=== PATIENT | female | born 1990 | race Caucasian/White ===

== ENCOUNTER 2022-11-16 06:55 | Emergency (ER) | payer SELFPAY ==
[2022-11-16 06:59] VITALS: BP 139/87; PULSE 67; RESP 20; TEMP 36.6; O2SAT 99; BMI 35.5
--- NOTE | 2022-11-16 07:42 | ED.GENADUL1 ---
HPI - General Adult General Chief complaint: Extremity Injury, Upper Stated complaint: R ARM NUMBNESS Time Seen by Provider: 11/16/22 07:26 Source: patient Source information: PATIENT Mode of arrival: walk-in Limitations: no limitations History of Present Illness HPI narrative: Patient is a 32-year-old female who is presenting to the Emergency Room with chief complaint of right forearm, wrist, hand throbbing, pain, numbness and tingling. This starts from her mid forearm and extends down all 5 fingers. Patient is right-hand dominant. Patient's been having more anxiety at work last week, also has been working longer shifts anywhere from 14-16 if not more hours a day. Patient's is at bedside. Patient has been taking Motrin with some relief. She does not use any ice or heat. Patient is concerned about a stroke. She has no headache. No motor or sensory deficits, most her pain is throbbing, her forearm and hand feels tight secondary to inflammation and some mild swelling. She has no infection. No signs of gallop. She has not had anything like this before. Patient does do repetitious work in the factory, she's been doing more working more hours last week that could've led to her symptoms. Patient's also more anxiety stress, she's been taking her medication and also taking more Atarax/hydroxyzine to help with her anxiety last week as well. No vision or hearing changes. Patient has no slurred speech or Facial droop. No deficits to her arms or legs, no acute complaints. Noted chest pain, shortness of breath. Symptoms have been intermittent for the last 3 days. Patient did not go to work today. Related Data Allergies Allergy/AdvReac Type Severity Reaction Status Date / Time Penicillins Allergy Intermediate Verified 11/16/22 07:03 Review of Systems ROS Narrative All systems are negative except as noted/marked. All systems reviewed and otherwise negative. [facility] Social History Smoking status: Never smoker Exam Narrative Exam Narrative: Nurses note and vital signs reviewed and patient is not hypoxic. General: The patient appears well and in no apparent distress. Patient is resting comfortably on cart. Patient is not toxic, lethargic, or listless Skin: Warm, dry, no pallor noted. There is no rash noted. No petechiae, purpura. Head: Normocephalic, atraumatic Eye: Normal conjunctiva, no drainage, EOMI. PERRL Ears, Nose, Mouth, and Throat: oral mucosa is moist. Nares patent. Mouth without vesicles. Cardiovascular: Regular Rate and Rhythm, no murmur, gallop, rub Respiratory: Patient is in no distress, no accessory muscle use, lungs are clear to auscultation, no wheezing, rales or rhonchi Back: non-tender, no CVA tenderness bilaterally to percussion. No CT LS midline pain GI: soft, no tenderness to palpation, no masses appreciated. No rebound, guarding, or rigidity noted. No flank pain bilateral, No distention Musculoskeletal: Patient has full range of motion of all of the extremities, no motor, sensory, or focal neurological deficits Neurological: A&O x3, normal speech, NIH 0. Patient has no motor or sensory deficits to the right arm, wrist, hand. Patient has good opposition with her thumb to her index finger, and her thumb to her pinky finger. Patient is able to make a fist, she is also able to open up her hand, but she slow to open up her hand with active range of motion secondary to swelling and throbbing. Patient has full range of motion of her wrist with mild pain. Patient's forearm shows no compartment syndrome, mild swelling and inflammation. Thhere is no redness, no signs of cellulitis or any signs of infection. Patient states all 5 fingers in the palmar and dorsal aspect of the hand are affected equally with swelling, throbbing, intermittent numbness and tingling like her hand is asleep. No weight. Psychiatric: Cooperative Constitutional Vital Signs, click to edit/add: Last Vital Signs Temp 97.8 F 11/16/22 06:59 Pulse 67 11/16/22 06:59 Resp 20 11/16/22 06:59 BP 139/87 11/16/22 06:59 Pulse Ox 99 11/16/22 06:59 O2 Del Method Room Air 11/16/22 06:59 Course Vital Signs Vital signs: Vital Signs Temperature 97.8 F 11/16/22 06:59 Pulse Rate 67 11/16/22 06:59 Respiratory Rate 20 11/16/22 06:59 Blood Pressure 139/87 11/16/22 06:59 Pulse Oximetry 99 11/16/22 06:59 Oxygen Delivery Method Room Air 11/16/22 06:59 Temperature 97.8 F 11/16/22 06:59 Pulse Rate 67 11/16/22 06:59 Respiratory Rate 20 11/16/22 06:59 Blood Pressure 139/87 11/16/22 06:59 Pulse Oximetry 99 11/16/22 06:59 Oxygen Delivery Method Room Air 11/16/22 06:59 Medical Decision Making MDM Narrative Medical decision making narrative: Patient had education done on stroke at bedside with patient and . Patient has no signs of stroke. Education on ice, rice therapy was done. Patient was given a right wrist splint. Patient will use Motrin 800 mg 3 times a day, patient lives in [place], patient would like to follow up with Dr. Cleary or [facility]. Work note and restrictions were given. Patient will only use her wrist splint for the next 3-4 days, then she'll start doing range of motion and strengthening exercises as well. No questions at discharge Discharge Plan Discharge Chief Complaint: Extremity Injury, Upper Clinical Impression: Right forearm pain, Sprain and strain of wrist, Arthralgia of right hand Patient Disposition: Home, Self-Care Condition: Fair Instructions: Sprain (ED), Arthralgia (ED), Wrist Sprain (ED), Arm Pain (ED), Cold Compress or Soak (ED) Additional Instructions: Usually wrist splint for the next 2 or 3 days. Use ice 20 minutes on, 20 minutes off. Use Motrin 800 mg 3 times a day with food or drink. Follow-up with Dr. Royal or Dr. Cleary in [place] for orthopedics surgery as discussed. Stand Alone Forms: Portal Instructions Referrals: BASIL MATAMOROS [Primary Care Provider] - 1 week
[2022-11-16 07:51] VITALS: BP 147/98; PULSE 78; RESP 20; O2SAT 98
== END 2022-11-16 07:55 | disposition home or self-care (01) ==
PROVIDERS: Emergency Provider Emergency Medicine; PCP Nurse Practitioner Family
DX: S63.501A Unspecified sprain of right wrist, initial encounter (principal); S66.911A Strain of unspecified muscle, fascia and tendon at wrist and hand level, right hand, initial encounter; M79.631 Pain in right forearm; M25.541 Pain in joints of right hand; X50.3XXA Overexertion from repetitive movements, initial encounter
CPT/HCPCS: 99283

== ENCOUNTER 2024-04-10 09:15 | Outpatient (OUT) | payer BC, SELFPAY ==
--- NOTE | 2024-04-10 09:55 | XR_ITS ---
The [address] [address] Patient Name: MOSES EMMANUEL MRN: [id number] date: 1990 Sex: F Assigned Patient Location: LAB Current Patient Location: LAB Accession/Order Number: [id number] Exam Date: 04/10/2024 10:10 Report Date: 04/10/2024 23:41 At the request of: BASIL MATAMOROS Procedure: XR lumbar spine 6V w bending EXAMINATION: XR lumbar spine 6V w bending HISTORY: Degeneration Of Lumbar Region COMPARISON: No relevant comparison available. FINDINGS: BONES: No significant spondylosis, scoliosis, fracture, or visible bony lesion. DISC SPACES: Moderate narrowing L5-S1 with small posterior disc osteophyte complex. PARASPINOUS: Negative. No paraspinous abnormality is seen. OTHER: Negative. XR/XR lumbar spine 6V w bending IMPRESSION: 1. L5-S1 moderate disc space narrowing with posterior endplate osteophytes likely narrowing the neural foramen. Consider MRI for further evaluation. Electronically authenticated by: DARIA TRAN Date: 04/10/2024 23:41
[2024-04-10 10:04] LABS: Basophils Percent Auto 0.6 % (0.2-2.0); Eosinophils Absolute Auto 0.1 10^3/uL (0.0-0.7); Eosinophils Percent Auto 1.8 % (0.9-7.0); Hematocrit 40.8 % (36.0-48.0); Hemoglobin 13.3 g/dL (12.0-16.0); Immature Granulocytes Abs Auto 0.04 10^3/uL (0.00-0.03); Immature Granulocytes Pct Auto 0.6 % (0.0-0.5); Lymphocytes Absolute Auto 2.5 10^3/uL (1.2-3.8); Lymphocytes Percent Auto 35.3 % (20.5-60.0); Mean Corpuscular HGB Conc 32.6 g/dL (29.9-35.2); Mean Corpuscular Hemoglobin 29.1 pg (26.7-34.0); Mean Corpuscular Volume 89.3 fL (81.0-99.0); Mean Platelet Volume 10.5 fL (9.5-13.5); Monocytes Absolute Auto 0.7 10^3/uL (0.3-0.8); Monocytes Percent Auto 10.1 % (1.7-12.0); Neutrophils Absolute Auto 3.7 10^3/uL (1.4-6.5); Neutrophils Percent Auto 51.6 % (43.0-75.0); Platelet Count 370 10^3/uL (150-450); Red Blood Count 4.57 10^6/uL (4.20-5.40); Red Cell Distribution Width 12.6 % (11.0-15.0); White Blood Count 7.2 10^3/uL (4.0-11.0)
[2024-04-10 11:17] LABS: Alanine Aminotransferase 23 U/L (14-59); Albumin Globulin Ratio 0.8; Albumin Level 3.4 g/dL (3.4-5.0); Alkaline Phosphatase 89 U/L (46-116); Anion Gap 11.5; Aspartate Amino Transferase 14 U/L (15-37); Bilirubin Total 0.2 mg/dL (0.2-1.0); Calcium 8.9 mg/dL (8.5-10.1); Carbon Dioxide 28.4 mmol/L (21.0-32.0); Chloride 105 mmol/L (98-107); Estimated GFR (African America >60 (>=60 mL/min/1.73m^2); Estimated GFR (Non-African Ame >60 (>=60 mL/min/1.73m^2); Globulin 4.4 g/dL; Glucose 94 mg/dL (74-106); Potassium 3.9 mmol/L (3.5-5.1); Sodium 141 mmol/L (136-145); Thyroid Stimulating Hormone 4.772 uIU/mL (0.358-3.740); Total Protein 7.8 g/dL (6.4-8.2)
[2024-04-10 11:19] LABS: Estimated Average Glucose 120 mg/dL; Glycohemoglobin A1C 5.8 % (4.5-6.2)
[2024-04-11 07:09] LABS: Insulin 7.1 uIU/mL (2.6-24.9)
== END 2024-04-10 09:16 | disposition home or self-care (01) ==
LOC: LAB 09:19
PROVIDERS: PCP Nurse Practitioner Family; Visit Provider Nurse Practitioner Family
DX: M51.372 Other intervertebral disc degeneration, lumbosacral region with discogenic back pain and lower extremity pain (principal); R10.2 Pelvic and perineal pain; M79.7 Fibromyalgia; N94.6 Dysmenorrhea, unspecified; N92.1 Excessive and frequent menstruation with irregular cycle; R53.82 Chronic fatigue, unspecified; R53.81 Other malaise
CPT/HCPCS: 36415; 72114; 80053; 83036; 83525; 84436; 84443; 85025

== ENCOUNTER 2024-04-16 23:42 | Emergency (ER) | payer BC, SELFPAY ==
--- OUTSIDE RECORDS SUMMARY | 2024-04-16 23:51 | XMS_ITS | CCD ---
Author Organization [facility] Care Team Providers Care Sealer Dry Cell Name Role Phone Hattie Matamoros Unavailable Pepper Rodriguez Unavailable HATTIE MATAMOROS Admitting Unavailable HATTIE MATAMOROS Attending Unavailable HATTIE MATAMOROS Primary Care Unavailable HATTIE MATAMOROS Consulting Unavailable ESTEBAN Matamoros Primary Care Provider DO Mikey Mayfield Emergency Provider Katerine Goss Unavailable Cordelia Redmond Unavailable Hattie Matamoros Primary Care Unavailable Mikey Mayfield Attending Unavailable Mikey Mayfield Admitting Unavailable DOMINIC JOHNSON Attending Unavailable LIU JOHNSON Referring Unavailable Allergies Allergy Classification Reported Allergen(s) Allergy Type Date of Onset Reaction(s) Facility (20 sources) Penicillin G Drug Allergy rash, swelling [facility] Other (2 sources) Penicillins Drug allergy (disorder) 3 Rash [facility] Repository (1 source) Penicillins Drug allergy (disorder) 3 [facility] Repository Medications Current Medications Medication Drug Class(es) Dates Sig (Normalized) Sig (Original) azithromycin 250 mg oral tablet (3 sources) Macrolide Antimicrobial Start: 08-13-2022 take 2 tablets by mouth once daily, then take 1 tablet by mouth once daily, then take 2-5 tablets by mouth once daily Zithromax Z-Yaniv 250 MG 2 tablets on day 1, then 1 tablet on days 2-5 Orally once a day for 5 days Jul, Active Start: 08-20-2021 Azithromycin 2 50 MG 2 tablet on the first day, then 1 tablet daily for 4 days Orally Once a day for 5 day(s) August, Active DULoxetine 30 mg delayed release oral capsule (20 sources) Serotonin and Norepinephrine Reuptake Inhibitor Start: 12-02-2023 take 30 mg by mouth once daily Duloxetine Active 30 MG PO Daily December 02, 2023 12:00am Start: 07-15-2021 End: 12-02-2023 take 20 mg by mouth once daily Duloxetine Discontinued 20 MG PO Daily June 24, 2022 1:00am December 02, 2023 4:51pm Start: 10-25-2020 take 1 capsule by [facility] every twenty-four hours DULoxetine HCl 30 MG 1 capsule orally daily for 30 day(s) Oct, Active hydrOXYzine hydrochloride 25 mg oral tablet (20 sources) Antihistamine Start: 12-02-2023 take 25 mg by mouth every eight hours Hydroxyzine Hcl Active 25 MG PO Every 8 hours December 02, 2023 12:00am Start: 06-24-2022 End: 12-02-2023 take 10 mg by mouth three times daily Hydroxyzine Hcl Discontinued 10 MG PO Three times daily June 24, 2022 1:00am December 02, 2023 4:51pm Start: 06-25-2020 take 1-2 tablets by mouth every eight hours at bedtime as needed hydrOXYzine HCl 10 MG 1-2 tablet as needed Orally every 8 hours as needed at every night at bedtime for 30 days Jun, Active prednisoLONE acetate 10 mg/ml ophthalmic suspension (6 sources) Corticosteroid Start: 06-02-2021 take 2-3 drop(s) into the eye(s) twice daily prednisoLONE Acetate 1 % use 2-3 drops in ear Ophthalmic Twice a day for 5 days May, Active traZODone hydrochloride 50 mg oral tablet (20 sources) Serotonin Reuptake Inhibitor Start: 10-25-2020 take 1 tablet by mouth every twenty-four hours traZODone HCl 50 MG 1 tablet at bedtime Orally Once a day Oct, Active Completed/Discontinued Medications Medication Drug Class(es) Dates Sig (Normalized) Sig (Original) [id number] 200 actuat albuterol 0.09 mg/actuat metered dose inhaler (18 sources) beta2-Adrenergic Agonist Start: 02-24-2021 take 2 puff(s) by inhalation four times daily as needed Albuterol Sulfate HFA 108 (90 Base) MCG/ACT 2 puffs Inhalation qid prn Feb, Not-Taking Start: 02-24-2021 take 2 puff(s) by in halation four times daily as needed Albuterol Sulfate HFA 108 (90 Base) MCG/ACT 2 puffs Inhalation qid prn Feb, Not-Taking cetirizine hydrochloride 10 mg oral tablet (17 sources) Histamine-1 Receptor Antagonist Start: 07-15-2021 take 1 tablet by mouth every twenty-four hours Cetirizine HCl 10 MG 1 tablet Orally Once a day for 30 day(s) Jun, Not-Taking dextromethorphan hydrobromide 1.5 mg/ml / pyrilamine maleate 1.5 mg/ml oral solution (2 sources) Uncompetitive N-taxjot-A-aspart ate Receptor Antagonist, Sigma-1 Agonist Start: 07-07-2022 take 10 mL by mouth every eight hours [place] DM 7.5-7.5 MG/5ML 10 mL Orally every 8 hours for 5 days Jun, Not-Taking fluticasone propionate 0.05 mg/actuat metered dose nasal spray (17 sources) Corticosteroid Start: 07-15-2021 take 1 spray(s) nasal route twice daily Fluticasone Propionate 50 MCG/ACT 1 spray in each nostril Nasally Twice a day for 30 day(s) Jun, Not-Taking methylPREDNISolone 4 mg oral tablet (7 sources) Corticosteroid Start: 07-07-2022 methylPREDNISolone 4 MG as directed Orally for daily dose take half with breakfast, half with dinner for 6 days Jun, Not-Taking Start: 02-03-2022 methylPREDNISo lone 4 MG as directed Orally Once a day for 6 days Jan, Active omeprazole 20 mg delayed release oral capsule (20 sources) Proton Pump Inhibitor Start: 10-25-2020 take 1 capsule by mouth once daily Omeprazole 20 MG 1 capsule 30 minutes before morning meal Orally Once a day for 30 day(s) Nov, Not-Taking ondansetron 4 mg oral tablet (10 sources) Serotonin-3 Receptor Antagonist Start: 09-25-2021 take 1 tablet by mouth every twelve hours Ondansetron HCl 4 MG 1 tablet Orally twice a day for 15 day(s) Sep, Not-Taking predniSONE 20 mg oral tablet (20 sources) Start: 02-24-2021 take 1 tablet by mouth every twelve hours predniSONE 20 MG 1 tablet Orally 2 times a day for 5 day(s) Dec, Not-Taking triamcinolone acetonide 40 mg/ml injectable suspension (17 sources) Corticosteroid Start: 12-24-2021 Kenalog-40 Dec, 40 mg Start: 06-02-2021 Triamcinolone Acetonide 0.025 % 1 application to affected area Externally Twice a day for 5 days May, Active Problems Active Problems Problem Classification Problem Date Documented Date Episodic/Chronic Acute and chronic tonsillitis (20 sources) Amygdalolith; Translations: [Other chronic diseases of tonsils and adenoids] 12-02-2023 Chronic Anxiety disorders (20 sources) Generalized anxiety disorder; Translations: [Generalized anxiety disorder] Onset: 02-10-2021 Resolved: 01-01-2022 Chronic Esophageal disorders (20 sources) Gastroesophageal reflux disease; Translations: [Gastro-esophageal reflux disease without esophagitis] Onset: 09-11-2021 Resolved: 09-11-2021 Chronic Immunizations and screening for infectious disease (3 sources) Contact with and (suspected) exposure to other viral communicable diseases; Translations: [Contact with or exposure to other viral diseases] Onset: 02-20-2021 Resolved: 02-20-2021 Episodic Malaise and fatigue (20 sources) Fatigue; Translations: [Chronic fatigue, unspecified] 12-02-2023 Chronic Menstrual disorders (20 sources) Amenorrhea; Translations: [Amenorrhea, unspecified] Onset: 09-11-2021 Resolved: 09-11-2021 Chronic Other upper respiratory disease (18 sources) Allergic rhinitis; Translations: [Other allergic rhinitis] 12-02-2023 Chronic Other upper respiratory disease (1 source) Other allergic rhinitis Onset: 07-15-2021 Resolved: 07-15-2021 Chronic Other upper respiratory infections (20 sources) Sinusitis; Translations: [Chronic sinusitis, unspecified] Chronic Other upper respiratory infections (5 sources) Acute pharyngitis, unspecified; Translations: [Acute pharyngitis due to other specified organisms] Onset: 08-20-2021 Resolved: 08-20-2021 Episodic Otitis media and related conditions (1 source) Unspecified nonsuppurative otitis media, bilateral Episodic Residual codes; unclassified (20 sources) Insomnia; Translations: [Other insomnia] Chronic Residual codes; unclassified (1 source) Other insomnia; Translations: [Other insomnia G47.09] Onset: 02-10-2021 Resolved: 02-10-2021 Chronic Residual codes; unclassified (20 sources) Insomnia; Translations: [Insomnia, unspecified] 12-02-2023 Episodic Residual codes; unclassified (3 sources) Insomnia, unspecified Onset: 09-11-2021 Resolved: 01-01-2022 Episodic Superficial injury; contusion (2 sources) Contusion of left middle finger; Translations: [Contusion of left middle finger without damage to nail, initial encounter] 06-25-2022 Episodic Thyroid disorders (8 sources) Acquired hypothyroidism; Translations: [Hypothyroidism, unspecified] Chronic Unclassified (1 source) Pain in left finger(s); Translations: [Pain in left finger(s)] Onset: 06-25-2022 Viral infection (1 source) Other viral agents as the cause of diseases classified elsewhere Episodic Past or Other Problems Problem Classification Problem Date Documented Da te Episodic/Chronic Allergic reactions (1 source) Unspecified contact dermatitis, unspecified cause Onset: 12-24-2021 Resolved: 12-24-2021 Episodic Bacterial infection; unspecified site (1 source) Other specified bacterial agents as the cause of diseases classified elsewhere Onset: 08-20-2021 Resolved: 08-20-2021 Episodic Fever of unknown origin (1 source) Fever, unspecified Onset: 07-15-2021 Resolved: 07-15-2021 Episodic Other inflammatory condition of skin (2 sources) Erythema intertrigo Onset: 08-05-2021 Resolved: 08-05-2021 Episodic Results Test Name Value Interpretation Reference Range Facility [facility] 08-13-2022 S. pyogenes Org specific cx Ql (Throat) Negative [facility] Other Quick Strep [facility] Other COVID + FLU [facility] Testing[facility] 07-07-2022 SARS-CoV-2 (COVID-19) RNA RITA+probe Ql (Unsp spec) Negative [email or web address] Other COVID + FLU Quick Testing Negative [email or web address] Other Quick Strepon 07-07-2022 S. pyogenes Org specific cx Ql (Throat) Negative [email or web address] Other Quick Strep [email or web address] Other XR finger LT 3rd digiton XR finger LT 3rd digit [facility] [place] [address] [place] [address] XRay Report Signed Patient: Nadine Davies MR#: [id number] : 1990 Acct:[id number] Age/Sex: 32 / F ADM Date: 06/24/22 Loc: ER Room: Type: [facility] ER Attending Dr: Copies to: Mikey Mayfield DO Ordering Provider: Mikey Mayfield DO Date of Service: 06/24/22 XR/XR finger LT 3rd digit: Skin/Abscess/Foreig n Body Left third digit 3 views. Reason for exam: Pain left middle finger after getting finger caught in metal Stamp at work Comparison: None. FINDINGS: No focal soft tissue abnormality no acute bony process. Joint spaces appear maintained. XR/XR finger LT 3rd digit IMPRESSION: No acute bony process. Impression dictated by: Daniel Mathew Jr., D.OMargoth06/25/2022 8:23 AM Dictation Location: [place] [address] Transcribed By: [facility] 06/25/22822 Dictated By: Daniel Mathew Jr, DO 06/25/22817 Signed By: 06/25/22822 Normal [facility] HEPATITIS B SURFACE ANTIBODY , QUANTon 05-26-2022 Hepatitis B Surf AB Quant <3.1 Critically low Immunity>9.9 [facility] Comment on above: Result Comment: Stat us of Immunity Anti-HBs Level Inconsistent with Immunity 0.0 - 9.9 Consistent with Immunity >9.9 Performed By: #### H EPBS #### [facility] [address] [place] [address] Dr. Audrey Irizarry HEPATITIS C ANTIBODYon 05-26 Hep C Virus Ab <0.1 Normal 0.0-0.9 [facility] Comment on above: Result Comment: Nega tive: < 0.8 Indeterminate: 0.8 - 0.9 Positive: > 0.9 . HCV antibody alone does not differentiate between previous resolved infection and active infection. The CDC and current clinical guidelines recommend that a positive HCV antibody result be followed up with an HCV RNA test to support the diagnosis of acute HCV infection. [facility] offers Hepatitis C Virus (HCV) RNA, Diagnosis, RITA (858144) and Hepatitis C Virus (HCV) Antibody with reflex to Quantitative Real-time PCR ([id number]). Performed By: #### H CV #### [facility] [address] [place] [address] Dr. Audrey Irizarry HIV 1 AND 2 WITH REFLEXon HIV Screen 4th Generation wRfx Non-Reactive Normal Non Reactive [facility] Comment on above: Result Comment: HIV Negative HIV-1/HIV-2 antibodies and HIV-1 p24 antigen were NOT detected. There is no laboratory evidence of HIV infection. Performed By: #### H IV12 #### [facility] [address] [place] [address] Dr. Audrey Irizarry RPR QUAL REFLEX TO QUANTon 0 05-26-2022 Rapid Plasma Reagin, Qual Non-Reactive Normal Non Reactive [facility] Comment on above: Performed By: #### R PRQL #### [facility] [address] [place] [address] Dr. Audrey Irizarry CBC AUTO DIFFon 05-25-2022 BASO # 0.0 103/ul Normal 0.0-0.1 [facility] Comment on above: Performed By: #### C BC #### [facility] [address] [place] [address] Dr. Audrey Irizarry Basophils/100 WBC (Bld) 0.3 % Normal 0.2-2.0 [facility] Comment on above: Performed By: #### C BC #### [facility] [address] [place] [address] Dr. Audrey Irizarry EO # 0.1 103/ul Normal 0.0-0.7 [facility] Comment on above: Performed By: #### C BC #### [facility] [address] [place] [address] Dr. Audrey Irizarry Eosinophils/100 WBC (Bld) 1.2 % Normal 0.9-7.0 [facility] Comment on above: Performed By: #### C BC #### [facility] [address] [place] [address] Dr. Audrey Irizarry Erythrocyte distribution width (RBC) [Ratio] 12.5 % Normal 11.0-15.0 [facility] Comment on above: Performed By: #### C BC #### [facility] [address] [place] [address] Dr. Audrey Irizarry Hematocrit (Bld) [Volume fraction] 39.2 % Normal 36.0-48.0 [facility] Comment on above: Performed By: #### C BC #### [facility] [address] [place] [address] Dr. Audrey Irizarry Hemoglobin (Bld) [Mass/Vol] 12.5 g/dL Normal 12.0-16.0 [facility] Comment on above: Performed By: #### C BC #### [facility] [address] [place] [address] Dr. Audrey Irizarry IG # 0.03 10e3/ul Normal 0.00-0.03 [facility] Comment on above: Performed By: #### C BC #### [facility] [address] [place] [address] Dr. Audrey Irizarry IG % 0.3 % Normal 0.0-0.5 [facility] Comment on above: Performed By: #### C BC #### [facility] [address] [place] [address] Dr. Audrey Irizarry LYMPH # 3.5 103/ul Normal 1.2-3.8 [facility] Comment on above: Performed By: #### C BC #### [facility] [address] [place] [address] Dr. Audrey Irizarry Lymphocytes/100 WBC (Bld) 37.7 % Normal 20.5-60.0 [facility] Comment on above: Performed By: #### C BC #### [facility] [address] [place] [address] Dr. Audrey Irizarry MANUAL DIFF REQ NO Normal [facility] Comment on above: Performed By: #### C BC #### [facility] [address] [place] [address] Dr. Audrey Irizarry MCH (RBC) [Entitic mass] 29.3 pg Normal 26.7-34.0 [facility] Comment on above: Performed By: #### C BC #### [facility] [address] [place] [address] Dr. Audrey Irizarry MCHC (RBC) [Mass/Vol] 31.9 g/dL Normal 29.9-35.2 [facility] Comment on above: Performed By: #### C BC #### [facility] [address] [place] [address] Dr. Audrey Irizarry MCV (RBC) [Entitic vol] 91.8 fL Normal 81.0-99.0 [facility] Comment on above: Performed By: #### C BC #### [facility] [address] [place] [address] Dr. Audrey Irizarry MONO # 0.6 103/ul Normal 0.3-0.8 [facility] Comment on above: Performed By: #### C BC #### [facility] [address] [place] [address] Dr. Audrey Irizarry Monocytes/100 WBC (Bld) 6.9 % Normal 1.7-12.0 [facility] Comment on above: Performed By: #### C BC #### [facility] [address] [place] [address] Dr. Audrey Irizarry NEUT # 5.0 103/ul Normal 1.4-6.5 [facility] Comment on above: Performed By: #### C BC #### [facility] [address] [place] [address] Dr. Audrey Irizarry Neutrophils/100 WBC (Bld) 53.6 % Normal 43.0-75.0 [facility] Comment on above: Performed By: #### C BC #### [facility] [address] [place] [address] Dr. Audrey Irizarry Platelet mean volume (Bld) [Entitic vol] 10.5 fL Normal 9.5-13.5 [facility] Comment on above: Performed By: #### C BC #### [facility] [address] [place] [address] Dr. Audrey Irizarry PLT 348 103/ul Normal 150-450 [facility] Comment on above: Performed By: #### C BC #### [facility] [address] [place] [address] Dr. Audrey Irizarry RBC 4.27 106/ul Normal 4.20-5.40 [facility] Comment on above: Performed By: #### C BC #### [facility] [address] [place] [address] Dr. Audrey Irizarry WBC 9.3 103/ul Normal 4.0-11.0 [facility] Comment on above: Performed By: #### C BC #### [facility] [address] [place] [address] Dr. Audrey Irizarry GLYCOHEMOGLOBIN A1Con 2022 ADA RECOMMENDATION SEE BELOW Normal [facility] Comment on above: Result Comment: ADA RECOMMENDED LIMIT 4.0 - 6.0 ADA THERAPEUTIC TARGET < 7.0 ACTION SUGGESTED > 7.0 Performed By: #### A 1C #### [facility] [address] [place] [address] Dr. Audrey Irizarry Glucose [Mass/Vol] 117 mg/dL Normal [facility] Comment on above: Performed By: #### A 1C #### [facility] [address] [place] [address] Dr. Audrey Irizarry HbA1c (Bld) [Mass fraction] 5.7 % Normal 4.5-6.2 [facility] Comment on above: Performed By: #### A 1C #### [facility] [address] [place] [address] Dr. Audrey Irizarry LIPID PROFILEon 05-25-2022 CHOL-HDL RATIO NORM SEE BELOW Normal [facility] Comment on above: Result Comment: 3.3 - 4.4 LOW RISK 4.4 - 7.1 AVERAGE RISK 7.1 - 11.0 MODERATE RISK >11.0 HIGH RISK Performed By: #### L IPID, CMP #### [facility] [address] [place] [address] [address] Audrey Irizarry Cholesterol [Mass/Vol] 203 mg/dL Critically high <=200 [facility] Comment on above: Performed By: #### L IPID, CMP #### [facility] [address] [place] [address] [address] Audrey Irizarry Cholesterol in HDL [Mass/Vol] 58 mg/dL Normal 40-60 [facility] Comment on above: Performed By: #### L IPID, CMP #### [facility] [address] [place] [address] [address] Audrey Irizarry Cholesterol in LDL [Mass/Vol] 127.0 mg/dL Normal [facility] Comment on above: Performed By: #### L IPID, CMP #### [facility] [address] [place] [address] [address] Audrey Irizarry Cholesterol.total/Ch olesterol in HDL [Mass ratio] 3.5 {ratio} Normal [facility] Comment on above: Performed By: #### L IPID, CMP #### [facility] [address] [place] [address] [address] Audrey Irizarry HDL NORMAL > or = 60 mg/dl - LOW CARDIOVASCULAR RISK <40 mg/dl - HIGH CARDIOVASCULAR RISK Normal [facility] Comment on above: Performed By: #### L IPID, CMP #### [facility] [address] [place] [address] [address] Audrey Irizarry LDL CALC NORMAL SEE BELOW Normal [facility] Comment on above: Result Comment: <100 mg/dl OPTIMAL 100 - 129 mg/dl NEAR OR ABOVE OPTIMAL 130 - 159 mg/dl BORDERLINE HIGH 160 - 189 mg/dl HIGH >190 mg/dl VERY HIGH Performed By: #### L IPID, CMP #### [facility] [address] [place] [address] [address] Audrey Irizarry Triglyceride [Mass/Vol] 90 mg/dL Normal <=150 [facility] Comment on above: Performed By: #### L IPID, CMP #### [facility] [address] [place] [address] Dr. Audrey Irizarry VLDL CALC 18.0 mg/dL Normal [facility] Comment on above: Performed By: #### L IPID, CMP #### [facility] [address] [place] [address] [address] Audrey Irizarry PROF 14(COMP METB)on 023 Albumin [Mass/Vol] 3.8 g/dL Normal 3.4-5.0 [facility] Comment on above: Performed By: #### L IPID, CMP #### [facility] [address] [place] [address] Dr. Audrey Irizarry Albumin/Globulin [Mass ratio] 0.9 {ratio} Normal [facility] Comment on above: Performed By: #### L IPID, CMP #### [facility] [address] [place] [address] Dr. Audrey Irizarry ALP [Catalytic activity/Vol] 81 U/L Normal 46-116 [facility] Comment on above: Performed By: #### L IPID, CMP #### [facility] [address] [place] [address] Dr. Audrey Irizarry ALT [Catalytic activity/Vol] 25 U/L Normal 14-59 [facility] Comment on above: Performed By: #### L IPID, CMP #### [facility] [address] [place] [address] Dr. Audrey Irizarry Anion gap [Moles/Vol] 10.7 mmol/L Normal [facility] Comment on above: Performed By: #### L IPID, CMP #### [facility] [address] [place] [address] Dr. Audrey Irizarry AST [Catalytic activity/Vol] 20 U/L Normal 15-37 [facility] Comment on above: Performed By: #### L IPID, CMP #### [facility] [address] [place] [address] [address] Audrey Irizarry Bilirubin [Mass/Vol] 0.2 mg/dL Normal 0.2-1.0 [facility] Comment on above: Performed By: #### L IPID, CMP #### [facility] [address] [place] [address] [address] Audrey Irizarry Calcium [Mass/Vol] 9.3 mg/dL Normal 8.5-10.1 [facility] Comment on above: Performed By: #### L IPID, CMP #### [facility] [address] [place] [address] [address] Audrey Irizarry Chloride [Moles/Vol] 101 mmol/L Normal 98-107 [facility] Comment on above: Performed By: #### L IPID, CMP #### [facility] [address] [place] [address] Dr. Audrey Irizarry CO2 [Moles/Vol] 29.1 mmol/L Normal 21.0-32.0 [facility] Comment on above: Performed By: #### L IPID, CMP #### [facility] [address] [place] [address] Dr. Audrey Irizarry Creatinine [Mass/Vol] 0.76 mg/dL Normal 0.55-1.02 [facility] Comment on above: Performed By: #### L IPID, CMP #### [facility] [address] [place] [address] Dr. Audrey Irizarry EGFR-AF BURMESE >60 Normal >=60 [facility] Comment on above: Performed By: #### L IPID, CMP #### [facility] [address] [place] [address] Dr. Audrey Irizarry EGFR-NON AF BURMESE >60 Normal >=60 [facility] Comment on above: Performed By: #### L IPID, CMP #### [facility] [address] [place] [address] Dr. Audrey Irizarry Globulin (S) [Mass/Vol] 4.1 g/dL Normal [facility] Comment on above: Performed By: #### L IPID, CMP #### [facility] [address] [place] [address] [address] Audrey Irizarry Glucose [Mass/Vol] 89 mg/dL Normal 74-106 [facility] Comment on above: Performed By: #### L IPID, CMP #### [facility] [address] [address] [address] Audrey Irizarry Potassium [Moles/Vol] 3.8 mmol/L Normal 3.5-5.1 [facility] Comment on above: Performed By: #### L IPID, CMP #### [facility] [address] [address] [address] Audrey Irizarry Protein [Mass/Vol] 7.9 g/dL Normal 6.4-8.2 [facility] Comment on above: Performed By: #### L IPID, CMP #### [facility] [address] [place] [address] Dr. Audrey Irizarry Sodium [Moles/Vol] 137 mmol/L Normal 136-145 [facility] Comment on above: Performed By: #### L IPID, CMP #### [facility] [address] [address] [address] Audrey Irizarry Urea nitrogen [Mass/Vol] 17.0 mg/dL Normal 7.0-18.0 [facility] Comment on above: Performed By: #### L IPID, CMP #### [facility] [address] [place] [address] Dr. Audrey Irizarry Urea nitrogen/Creatinine [Mass ratio] 22.4 mg/mg Normal [facility] Comment on above: Performed By: #### L IPID, CMP #### [facility] [address] [address] [address] Audrey Irizarry VITAMIN D 25 OHon 05-25-2022 VIT D 25-OH 16.8 ng/mL Normal [facility] Comment on above: Performed By: #### V ITAD #### [facility] [address] [place] [address] Dr. Audrey Irizarry VIT D RANGES SEE BELOW Normal [facility] Comment on above: Result Comment: <20 ng/mL Vit D deficient 20 - <30 ng/mL Vit D insufficient 30 - 100 ng/mL Vit D sufficient >100 ng/mL Potential Toxicity Performed By: #### V ITAD #### [facility] [address] [place] [address] Dr. Audrey Irizarry Quick Strepon 08-20-2021 S. pyogenes Org specific cx Ql (Throat) Negative [facility] Other Quick Strep [facility] Other Quick Fluon 07-15-2021 FLUAV Ab CF (S) [Titer] Negative [facility] Other FLUBV Ab CF (S) [Titer] Negative [facility] Other COVID Quick Testingon 2020 Result Negative [facility] Other Gynecology Office/Clinic Not nancy 03-30-2019 Gynecology Office/Clinic Note Chief Complaint New Patient Annual . Would like Contol Obstetric History History (0,0,0,0) No previous pregnancies history have been recorded History of Present Illness New Pt here for annual. She is interested in contraception. Risks/benefits/alte rnatives of contraception/LARC/ injection/ring discussed with patient including but not limited to increased risk of weight gain, bone loss, VTE, infection, abnormal , migration, expulsion, uterine perforation, abnormal uterine bleeding, bruising/hematoma of skin, as well as failure of contraceptive. Pt has verbalized understanding and is willing to accept risk. She however is not sure which LARC she wants. She is also concerned because she has a recent sexual encounter and thinks perhaps she got an infection from that. States she does not feel right down there . Review of Systems PHQ Score Initial Depression Screen Score: 0 ROS ? Provider Constitutional: No fever, No chills, No sweats, No weakness. No Weight change; No fatigue. Skin: No rash, No lesions. ENMT: No ear pain, No sore throat, No congestion. Respiratory: No shortness of breath, No cough, No orthopnea, No wheezing. Cardiovascular: No chest pain, No palpitations, No peripheral edema. Gastrointestinal: No nausea, No vomiting, No diarrhea, No GI bleeding. Genitourinary: No dysuria, No hematuria, No discharge, No pain. Gynecology: Yes abnormal vaginal discharge, No vaginal itching/burning, No vaginal dryness, No painful periods, No abnormal bleeding, No pelvic pain, No painful intercourse, No hair loss/growth, No hot flashes Breast: No breast pain, No skin changes, No masses/lumps, No nipple discharge. Musculoskeletal: No back pain, No trauma. Neurological: No headache, No dizziness, No numbness, No weakness. Psychiatric: No sleeping problems, No irritability, No mood swings/depression. Heme/Lymph: No bleeding tendency, No bruising tendency, No petechiae, No swollen. Physical Exam Vitals & Measurements HR: 76(Peripheral) RR: 16 BP: 122/86 HT: 165 cm WT: 98.3 kg BMI: 36.11 General Exam: Constitutional: alert, no acute distress, well hydrated, well developed, well nourished. Skin: normal color, no rashes, no lesions, no unusual bruising. Head: atraumatic, normocephalic. Eyes: EOM intact, no nystagmus, no icterus. Ears: no external deformities, gross hearing intact. Mouth: normal dentition Neck: supple, no adenopathy, no masses, thyroid normal size, no thyroid tenderness or nodules. Breasts: skin/areolae normal, no masses, no nipple discharge, no erythema/warmth/ten derness, axillae normal. Cardiovascular: RRR, no murmurs, no gallops, no edema. Respiratory: no respiratory distress. Abdomen: nondistended, nontender, no guarding, no masses. Spine: normal mobility, no deformities. Extremities: no deformities, no clubbing, no cyanosis, no edema. Neurol: normal, cranial nn II-XII grossly intact, sensation intact, motor intact, station & gait normal. Psych: oriented to all spheres, affect and mood appropriate, normal interaction, good eye contact. Pelvic Exam: Vulva: normal appearance, normal hair distribution, no lesions or masses. Urethra: normal, no masses, non-tender, no discharge. Bladder: normal, non-tender, non-distended. Vagina: normal, rugated, white watery discharge, no lesions, no masses, adequate pelvic support. Cervix: normal, midposition, no motion tenderness, no lesions. Uterus: smooth, mobile, non-tender, adequate support, anteverted. Adnexa: normal, no masses, mobile, nontender. Assessment/Plan 1. New pt is here for annual 2. Pt desires STD testing 3. Not sure if she wants Kylena or Nexplanon 4. She will let us know when she decides 5 Pap done w/cultures 6. f/u for contraception/LARC 1. Encounter for well woman exam (Z01.419: Encounter for gynecological examination (general) (routine) without abnormal findings) Ordered: Initial Comp Preventive Med 18 to 39 [place] [id number] Follow-up With When Contact Information Zhane Foy DO In 1 year [address] [facility] [place] [address]- [phone] Additional Instructions: Problem List/Past Medical History Ongoing No qualifying data Historical No qualifying data Procedure/Surgical History Cholecystectomy (2008). Medications No active medications Allergies penicillins (Hives) Social History Alcohol - No Risk, 03/30/2019 1-2 times per year, 03/30/2019 Sexual Sexually active: Yes., 03/30/2019 Tobacco - Denies Tobacco Use, 03/30/2019 Never (less than 100 in lifetime) Tobacco Use:. Never Smokeless Tobacco Use:., 03/30/2019 Family History Diabetes mellitus type 2: Mother and Father. Hypertension: Mother. Primary malignant neoplasm of colon: Grandparent. Immunizations Vaccine Date Status Comments influenza virus vaccine, live, trivalent - Not Given Patient Refuses Normal [facility] Comment on above: Result Comment: Elec tronically Signed By: Zhane Foy DO\.br\Date and Time Signed: 03/30/19 10:21 EST Vital Signs Date Time Vital Sign Value Performing Clinician Facility 12-02-2023 16:54-0400 Body height 170.18 cm [facility] 12-02-2023 16:54-0400 Body mass index (BMI) [Ratio] 34.2 kg/m2 [facility] 12-02-2023 16:54-0400 Body temperature 98.3 [degF] [facility] 12-02-2023 16:54-0400 Body weight 99.33 kg [facility] 12-02-2023 16:54-0400 Diastolic blood pressure 77 mm[Hg] [facility] 12-02-2023 16:54-0400 Heart rate 85 /min [facility] 12-02-2023 16:54-0400 Respiratory rate 18 /min [facility] 12-02-2023 16:54-0400 SaO2% (BldA) [Mass fraction] 98 % [facility] 12-02-2023 16:54-0400 Systolic blood pressure 117 mm[Hg] [facility] 08-13-2022 18:20-0400 Body height 168.28 cm Cordelia Redmond Other [email or web address] [email or web address] Other 08-13-2022 18:20-0400 Body mass index (BMI) [Ratio] 35.24 kg/m2 Cordelia Redmond Other [facility] Other 08-13-2022 18:20-0400 Body temperature 98.3 [degF] Cordelia Redmond Other [facility] Other 08-13-2022 18:20-0400 Body weight 99.79 kg Cordelia Redmond Other [facility] Other 08-13-2022 18:20-0400 Respiratory rate 18 /min Cordelia Redmond Other [facility] Other 08-13-2022 18:20-0400 SaO2% (BldA) [Mass fraction] 96 % Cordelia Redmond Other [facility] Other 07-07-2022 14:40-0400 Body height 168.28 cm Katerine Goss Other [facility] Other 07-07-2022 14:40-0400 Body mass index (BMI) [Ratio] 35.24 kg/m2 Katerine Goss Other [facility] Other 07-07-2022 14:40-0400 Body temperature 97.5 [degF] Katerine Goss Other [facility] Other 07-07-2022 14:40-0400 Body weight 99.79 kg Katerine Goss Other [facility] Other 07-07-2022 14:40-0400 Respiratory rate 18 /min Katerine Goss Other [facility] Other 07-07-2022 14:40-0400 SaO2% (BldA) [Mass fraction] 98 % Katerine Wolfgang Other [facility] Other 06-25-2022 04:00-0500 Diastolic blood pressure 88 mm[Hg] [employer] Hattie Cassandra Work Phone: [facility] 06-25-2022 04:00-0500 Heart rate 70 /min [employer] Hattie Cassandra Work Phone: [facility] 06-25-2022 04:00-0500 Respiratory rate 17 /min [employer] Hattie Cassandra Work Phone: [facility] 06-25-2022 04:00-0500 SaO2% (BldA) [Mass fraction] 99 % [employer] Hattie Cassandra Work Phone: [facility] 06-25-2022 04:00-0500 Systolic blood pressure 121 mm[Hg] [employer] Hattie Cassandra Work Phone: [facility] 06-24-2022 23:42-0500 Body temperature 98.1 [degF] [employer] Hattie Cassandra Work Phone: [facility] 06-24-2022 23:40-0500 Body height 167.64 cm [employer] Hattie Matamoros Work Phone: [facility] 06-24-2022 23:40-0500 Body weight 100.1 kg [employer] Hattie Matamoros Work Phone: [facility] 05-05-2022 10:00-0500 Body height 168.28 cm Hattie Charltonault Other [facility] Other 05-05-2022 10:00-0500 Body mass index (BMI) [Ratio] 35.53 kg/m2 Hattie Charltonault Other [facility] Other 05-05-2022 10:00-0500 Body temperature 97.8 [degF] Hattie Cassandra Other [facility] Other 05-05-2022 10:00-0500 Body weight 100.61 kg Hattie Charltonault Other [facility] Other 05-05-2022 10:00-0500 Diastolic blood pressure 66 mm[Hg] Hattie Cassandra Other [facility] Other 05-05-2022 10:00-0500 Respiratory rate 18 /min Hattie Cassandra Other [facility] Other 05-05-2022 10:00-0500 SaO2% (BldA) [Mass fraction] 100 % Hattie Cassandra Other [facility] Other 05-05-2022 10:00-0500 Systolic blood pressure 111 mm[Hg] Hattie Cassandra Other [facility] Other 02-03-2022 12:00-0400 Body height 165.1 cm Hattie Matamoros Other [facility] Other 02-03-2022 12:00-0400 Body mass index (BMI) [Ratio] 35.77 kg/m2 Hattie Matamoros Other [facility] Other 02-03-2022 12:00-0400 Body temperature 97.9 [degF] Hattie Matamoros Other [facility] Other 02-03-2022 12:00-0400 Body weight 97.52 kg Hattie Matamoros Other [facility] Other 02-03-2022 12:00-0400 Diastolic blood pressure 79 mm[Hg] Hattie Charltonault Other [facility] Other 02-03-2022 12:00-0400 Respiratory rate 18 /min Hattie Matamoros Other [facility] Other 02-03-2022 12:00-0400 SaO2% (BldA) [Mass fraction] 99 % Hattie Charltonault Other [facility] Other 02-03-2022 12:00-0400 Systolic blood pressure 119 mm[Hg] Hattie Charltonault Other [facility] Other 01-01-2022 11:30-0400 Body height 165.1 cm Hattie Charltonault Other [facility] Other 01-01-2022 11:30-0400 Body mass index (BMI) [Ratio] 35.94 kg/m2 Hattie Cassandra Other [facility] Other 01-01-2022 11:30-0400 Body temperature 97.7 [degF] Hatite Matamoros Other [facility] Other 01-01-2022 11:30-0400 Body weight 97.98 kg Hattie Matamoros Other [facility] Other 01-01-2022 11:30-0400 Diastolic blood pressure 72 mm[Hg] Hattie Matamoros Other [facility] Other 01-01-2022 11:30-0400 Respiratory rate 16 /min Hattie Matamoros Other [facility] Other 01-01-2022 11:30-0400 SaO2% (BldA) [Mass fraction] 99 % Hattie Matamoros Other [facility] Other 01-01-2022 11:30-0400 Systolic blood pressure 119 mm[Hg] Hattie Matamoros Other [facility] Other 12-24-2021 17:40-0400 Body height 165.1 cm Pepper Rodriguez Other [facility] Other 12-24-2021 17:40-0400 Body mass index (BMI) [Ratio] 35.94 kg/m2 Pepper Rodriguez Other [facility] Other 12-24-2021 17:40-0400 Body temperature 97.5 [degF] Pepper Rodriguez Other [facility] Other 12-24-2021 17:40-0400 Body weight 97.98 kg Peppre Rodriguez Other [facility] Other 12-24-2021 17:40-0400 Diastolic blood pressure 73 mm[Hg] Pepper Rodriguez Other [facility] Other 12-24-2021 17:40-0400 Respiratory rate 16 /min Pepper Rodriguez Other [facility] Other 12-24-2021 17:40-0400 SaO2% (BldA) [Mass fraction] 99 % Pepper Rodriguez Other [facility] Other 12-24-2021 17:40-0400 Systolic blood pressure 118 mm[Hg] Pepper Rodriguez Other [facility] Other 09-11-2021 11:30-0400 Body height 165.1 cm Hattie Charltonault Other [facility] Other 09-11-2021 11:30-0400 Body mass index (BMI) [Ratio] 35.61 kg/m2 Hattie Cassandra Other [facility] Other 09-11-2021 11:30-0400 Body temperature 98.6 [degF] Hattie Cassandra Other [facility] Other 09-11-2021 11:30-0400 Body weight 97.07 kg Hattie Cassandra Other [facility] Other 09-11-2021 11:30-0400 Diastolic blood pressure 64 mm[Hg] Hattie Cassandra Other [facility] Other 09-11-2021 11:30-0400 Respiratory rate 18 /min Hattie Matamoros Other [facility] Other 09-11-2021 11:30-0400 SaO2% (BldA) [Mass fraction] 100 % Hattie Matamoros Other [facility] Other 09-11-2021 11:30-0400 Systolic blood pressure 121 mm[Hg] Hattie Matamoros Other [facility] Other 08-20-2021 12:00-0400 Body height 165.1 cm Pepper Arandamond Other [facility] Other 08-20-2021 12:00-0400 Body mass index (BMI) [Ratio] 35.94 kg/m2 Pepper Arandamond Other [facility] Other 08-20-2021 12:00-0400 Body temperature 96.8 [degF] Pepper Arandamond Other [facility] Other 08-20-2021 12:00-0400 Body weight 97.98 kg Pepper Rodriguez Other [facility] Other 08-20-2021 12:00-0400 SaO2% (BldA) [Mass fraction] 98 % Pepper Arandamond Other [facility] Other 08-05-2021 12:00-0400 Body height 165.1 cm Hattie Charltonault Other [facility] Other 08-05-2021 12:00-0400 Body mass index (BMI) [Ratio] 35.94 kg/m2 Hattie Cassandra Other [facility] Other 08-05-2021 12:00-0400 Body temperature 98.6 [degF] Hattie Matamoros Other [facility] Other 08-05-2021 12:00-0400 Body weight 97.98 kg Hattie Matamoros Other [facility] Other 08-05-2021 12:00-0400 Diastolic blood pressure 73 mm[Hg] Hattie Charltonault Other [facility] Other 08-05-2021 12:00-0400 Respiratory rate 18 /min Hattie Matamoros Other [facility] Other 08-05-2021 12:00-0400 SaO2% (BldA) [Mass fraction] 100 % Hattie Charltonault Other [facility] Other 08-05-2021 12:00-0400 Systolic blood pressure 115 mm[Hg] Hattie Matamoros Other [facility] Other 07-15-2021 12:30-0400 Body height 165.1 cm Hattie Charltonault Other [facility] Other 07-15-2021 12:30-0400 Body mass index (BMI) [Ratio] 35.94 kg/m2 Hattie Charltonault Other [facility] Other 07-15-2021 12:30-0400 Body temperature 96.8 [degF] Hattie Charltonault Other [facility] Other 07-15-2021 12:30-0400 Body weight 97.98 kg Hattie Matamoros Other [facility] Other 07-15-2021 12:30-0400 Diastolic blood pressure 64 mm[Hg] Hattie Matamoros Other [facility] Other 07-15-2021 12:30-0400 Respiratory rate 18 /min Hattie Matamoros Other [facility] Other 07-15-2021 12:30-0400 SaO2% (BldA) [Mass fraction] 100 % Hattie Matamoros Other [facility] Other 07-15-2021 12:30-0400 Systolic blood pressure 109 mm[Hg] Hattie Matamoros Other [facility] Other 02-20-2021 15:00-0400 Body height 165.1 cm Hattie Matamoros Other [facility] Other 02-20-2021 15:00-0400 Body mass index (BMI) [Ratio] 34.94 kg/m2 Hattie Matamoros Other [facility] Other 02-20-2021 15:00-0400 Body temperature 97.8 [degF] Hattie Matamoros Other [facility] Other 02-20-2021 15:00-0400 Body weight 95.26 kg Hattie Matamoros Other [facility] Other 02-20-2021 15:00-0400 Respiratory rate 18 /min Hattie Matamoros Other [facility] Other 02-20-2021 15:00-0400 SaO2% (BldA) [Mass fraction] 98 % Hattie Matamoros Other [facility] Other 02-10-2021 11:00-0400 Body height 165.1 cm Hattie Matamoros Other [facility] Other 02-10-2021 11:00-0400 Body mass index (BMI) [Ratio] 35.61 kg/m2 Hattie Matamoros Other [facility] Other 02-10-2021 11:00-0400 Body temperature 97 [degF] Hattie Matamoros Other [facility] Other 02-10-2021 11:00-0400 Body weight 97.07 kg Hattie Matamoros Other [facility] Other 02-10-2021 11:00-0400 Diastolic blood pressure 70 mm[Hg] Hattie Charltonault Other [facility] Other 02-10-2021 11:00-0400 Respiratory rate 18 /min Hattie Matamoros Other [facility] Other 02-10-2021 11:00-0400 SaO2% (BldA) [Mass fraction] 98 % Hattie Matamoros Other [facility] Other 02-10-2021 11:00-0400 Systolic blood pressure 115 mm[Hg] Hattie Charltonault Other [facility] Other Encounters Encounter Date Encounter Type Care Provider Facility Start: 12-02-2023 End: 12-02-2023 [facility] Work Phone: Start: 12-02-2023 End: 12-02-2023 Patient encounter procedure [facility] Work Phone: Start: 07-06-2023 End: 07-06-2023 ambulatory DOMINIC JOHNSON Not Available Start: 08-13-2022 End: 08-13-2022 ambulatory Cordelia Redmond Other [employer] [facility] Other Start: 08-13-2022 Office outpatient vi sit 15 minutes Cordelia Redmond [facility] Start: 07-07-2022 End: 07-07-2022 ambulatory Katerine Goss Other [facility] Other Start: 07-07-2022 Office outpatient vi sit 25 minutes Katerine Goss [facility] Start: 06-25-2022 End: 06-25-2022 Emergency department patient visit Hattie Matamoros Facility:[facility] Start: 06-24-2022 End: 06-25-2022 Emergency department patient visit [employer] Hattie Matamoros Work Phone: [facility] Work Phone: Start: 06-09-2022 End: 06-09-2022 ambulatory Hattie Matamoros Other [facility] Other Start: 06-09-2022 Telephone encounter Hattie masterson [facility] Start: 06-03-2022 End: 06-03-2022 ambulatory Hattie Matamoros Other [facility] Other Start: 06-03-2022 Telephone encounter Hattie masterson [facility] Start: 05-26-2022 Encounter for genera l adult medical examination without abnormal findings HATTIE MATAMOROS [facility] Start: 05-25-2022 End: 05-26-2022 ambulatory HATTIE MATAMOROS Facility:[facility] Start: 05-25-2022 End: 05-26-2022 Encounter for general adult medical examination without abnormal findings HATTIE MATAMOROS Facility:[facility] Start: 05-11-2022 End: 05-11-2022 ambulatory Hattie Matamoros Other [facility] Other Start: 05-11-2022 Telephone encounter Hattiebrynn Ahujal t [facility] Start: 05-05-2022 End: 05-05-2022 ambulatory Hattie Matamoros Other [facility] Other Start: 05-05-2022 Encounter for genera l adult medical examination without abnormal findings Hattie Matamoros [facility] Start: 05-05-2022 Periodic preventive med est patient 18-39 yrs Hattie Charltonault [facility] Start: 02-03-2022 End: 02-03-2022 ambulatory Hattie Matamoros Other [facility] Other Start: 02-03-2022 Office outpatient vi sit 25 minutes Hattiebrynn Matamoros [facility] Start: 01-01-2022 End: 01-01-2022 ambulatory Hattie Matamoros Other [facility] Other Start: 01-01-2022 Office outpatient vi sit 15 minutes Hattie Cassandra [facility] Start: 12-24-2021 End: 12-24-2021 ambulatory Pepper Rodriguez Other [facility] Other Start: 12-24-2021 Office outpatient vi sit 15 minutes Pepperyung Rodriguez [facility] Start: 09-25-2021 End: 09-25-2021 ambulatory Hattie Matamoros Other [facility] Other Start: 09-25-2021 Telephone encounter Hattiebrynn Ahujal t [facility] Start: 09-11-2021 End: 09-11-2021 ambulatory Hattie Cassandra Other [facility] Other Start: 09-11-2021 Office outpatient vi sit 15 minutes Hattie Cassandra [facility] Start: 08-20-2021 End: 08-20-2021 ambulatory Pepper Rodriguez Other [facility] Other Start: 08-20-2021 Office outpatient vi sit 15 minutes Pepper Jennifer [facility] Start: 08-18-2021 End: 08-18-2021 ambulatory Hattie Cassandra Other [facility] Other Start: 08-18-2021 Telephone encounter Hattie Breaul t [facility] Start: 08-09-2021 End: 08-09-2021 ambulatory Hattie Cassandra Other [facility] Other Start: 08-09-2021 Telephone encounter Hattie Breaul t [facility] Start: 08-05-2021 End: 08-05-2021 ambulatory Hattie Cassandra Other [facility] Other Start: 08-05-2021 Office outpatient vi sit 15 minutes Hattie Cassandra [facility] Start: 07-15-2021 End: 07-15-2021 ambulatory Hattie Cassandra Other [employer] Other Start: 07-15-2021 Office outpatient vi sit 15 minutes Hattie Cassandra [facility] Start: 04-01-2021 End: 04-01-2021 ambulatory Hattie Cassandra Other [facility] Other Start: 04-01-2021 Telephone encounter Hattie Breaul t [facility] Start: 02-20-2021 End: 02-20-2021 ambulatory Hattie Cassandra Other [facility] Other Start: 02-20-2021 Office outpatient vi sit 15 minutes Hattie Matamoros [facility] Start: 02-10-2021 Office outpatient vi sit 15 minutes Hattie Matamoros [facility] Plan of Treatment Date Care Activity Detail Author Start: 06-24-2022 X-ray of middle finger XR finger LT 3rd digit [facility] Start: 06-24-2022 XR Finger third - le ft Views [facility] Patient Education Common Finger Injuries ED Minor Contusion ED [facility] Work Phone: Patient referral [facility] Work Phone: Payers Date Payer Category Payer Unknown [id number] 2022 Self-pay [id number] 1992 Unknown [id number] 1992 Unknown [id number] 1957 Blue Cross Blue Shield [id number] Unknown [id number] Unknown [employer] BC/BS [id number] Worker's Compensation [employer] [id number] Social History Date Type Detail Facility Unknown if ever smoked [facility] Other Sex Assigned At Sex Assigned At Bir th [facility] Other Start: 06-25-2022 End: 12-02-2023 Tobacco smoking status NHIS Never smoked tobacco (finding) [facility] Start: 1990 Sex Assigned At Female [facility] Clinical Notes 02-10-2021 to 08-13-2022 Note Date & Type Note Facility 08-13-2022 Evaluation note Encounter Date Diagnosis Assessment Notes Jul, Sore throat (ICD-10 - J02.9) strep neg, but treating as bacterial based on PE findings and sx. Pt is to take abx as prescribed. take with food. Informed pt they are contagious for first 24 hrs on medication. Push fluids and rest. Pt denied work note today. Pt is to take otc antipyretic prn for fever and aches. Change toothbrush after 2-3 days. Pt is to be re-evaluated after treatment if sx worsen or don't improve by pcp. Pt is to call the office with any questions or concerns regarding dx and tx. Pt understood and agreed to treatment plan. [facility] Other 03-21-2023 Evaluation note* Encounter Date Diagnosis Assessment Notes Treatment Notes Treatment Clinical Notes Jun, Acute sinusitis, unspecified (ICD-10 - J01.90) Advised patient that rapid Strep test and rapid COVID/Influenza A/B test was negative today in office. Discussed diagnosis with patient today. Will treat as viral at this time based on physical exam and duration of symptoms. Advised patient viral syndromes last 7-10 days. If symptoms do not improve in the next 3-4 days patient may call UC and I will send antibiotic. Encouraged supportive care as directed today. Push fluids/rest, nasal saline washes as directed, may use Tylenol or Motrin as needed for discomfort, OTC plain Mucinex. Patient to follow up with PCP or UC for any new or worsening symptoms. Immediate eval if SOB, wheezing, difficulty breathing, or other concerning symptoms. Patient verbalizes understanding and is agreeable to treatment plan Jun, Other viral agents as the cause of diseases classified elsewhere (ICD-10 - B97.89) Jun, Sore throat (ICD-10 - J02.9) Jun, Contact with and (suspected) exposure to other viral communicable diseases (ICD-10 - Z20.828) [employer] Other 02-21-2023 Evaluation note* Encounter Date Diagnosis Assessment Notes Treatment Notes Treatment Clinical Notes May, Acquired hypothyroidism (ICD-10 - E03.9) [employer] Other 01-23-2023 Evaluation note* Encounter Date Diagnosis Assessment Notes Treatment Notes Treatment Clinical Notes Apr, BRITT (generalized anxiety disorder) (ICD-10 - F41.1) Apr, Insomnia, unspecified type (ICD-10 - G47.00) [facility] Other 01-17-2023 Evaluation note* Encounter Date Diagnosis Assessment Notes Treatment Notes Treatment Clinical Notes Apr, BRITT (generalized anxiety disorder) (ICD-10 - F41.1) Continue current medication Apr, Encounter for wellness examination (ICD-10 - Z00.00) Today during your appointment we discussed your health history and family history of chronic health problems. We also discussed screenings that should be done to rule out chronic health problems. These screenings can help prevent many health problems from becoming major as early intervention is the best treatment for all conditions Based on the findings, we will come up with a plan together of when the best time for your next screening should be. [employer] Other 10-18-2022 Evaluation note* Encounter Date Diagnosis Assessment Notes Treatment Notes Treatment Clinical Notes Jan, Menorrhagia with irregular cycle (ICD-10 - N92.1) We will start with this ultrasound to see what is going on then go from there. Jan, Bilateral otitis media with effusion (ICD-10 - H65.93) take medication as directed. Middle ear fluid can be caused from allergies, traveling or viral infections. It may linger. [employer] Other 09-15-2022 Evaluation note* Encounter Date Diagnosis Assessment Notes Treatment Notes Treatment Clinical Notes Dec, BRITT (generalized anxiety disorder) (ICD-10 - F41.1) Will continue to take medication at this time. Dec, Insomnia, unspecified type (ICD-10 - G47.00) Will continue to take medication at this time. [employer] Other 09-07-2022 Evaluation note* Encounter Date Diagnosis Assessment Notes Treatment Notes Treatment Clinical Notes Dec, Contact dermatitis, unspecified contact dermatitis type, unspecified trigger (ICD-10 - L25.9) Drink plenty fluids, get plenty of rest. Take the prednisone as prescribed until gone. You may take Benadryl as needed for itching. Follow-up with your family physician if no improvement in 2 to 3 days. Dec, Other Contact dermati tis home care material was printed [employer] Other 05-26-2022 Evaluation note* Encounter Date Diagnosis Assessment Notes Treatment Notes Treatment Clinical Notes August, Amenorrhea (ICD-10 - N91.2) Patient has appointment on 09/17 and at that point will determine what her next steps will be August, BRITT (generalized anxiety disorder) (ICD-10 - F41.1) Continue to take current medications. Discussed most medications are catagory C in general. August, Gastroesophageal reflux disease, unspecified whether esophagitis present (ICD-10 - K21.9) August, Insomnia, unspecifie d type (ICD-10 - G47.00) [employer] Other 05-04-2022 Evaluation note* Encounter Date Diagnosis Assessment Notes Treatment Notes Treatment Clinical Notes August, Sore throat (ICD-10 - J02.9) August, Acute pharyngitis due to other specified organisms (ICD-10 - J02.8) Drink plenty fluids, get plenty of rest. Take the Zithromax and prednisone as prescribed until gone. Off work today and tomorrow. Follow-up with your family physician if no improvement in 2 to 3 days. August, Other specified bacterial agents as the cause of diseases classified elsewhere (ICD-10 - B96.89) [employer] [facility] Other 05-02-2022 Evaluation note* Encounter Date Diagnosis Assessment Notes Treatment Notes Treatment Clinical Notes August, BRITT (generalized anxiety disorder) (ICD-10 - F41.1) [employer] [facility] Other 04-19-2022 Evaluation note* Encounter Date Diagnosis Assessment Notes Treatment Notes Treatment Clinical Notes Jul, Chafing (ICD-10 - L30.4) [facility] Other 04-19-2022 Evaluation note* Encounter Date Diagnosis Assessment Notes Treatment Notes Treatment Clinical Notes Jul, Chafing (ICD-10 - L30.4) Recommending using Aquaphor or Vitamin A&D ointment to area to outer genital area to help with discomfort. If this doesn't work we will need to do an exam, it can be after menstrual cycle is completed if it makes patient more comfortable [facility] Other 03-29-2022 Evaluation note* Encounter Date Diagnosis Assessment Notes Treatment Notes Treatment Clinical Notes Jun, Fever (ICD-10 - R50.9) Jun, BRITT (generalized anxiety disorder) (ICD-10 - F41.1) Discussed with patient that she has in the past wanted to discontinue this medication - patient insists that if we stay on the low dose that she wants to retry this specific medication. Today during the appointment we discussed depression and emotions. We talked about treatment options that include both counseling and medication interventions. When we first start treatment, it is common to have to be seen more frequently as we figure out the best treatment regimen that fits you as an individual. We will be able to space out appointments more once we find what works for you. If at any time you feel like your symptoms have increased in severity or you want to hurt yourself, please never hesitate to contact us and we will get you in to be seen. Also always know the [facility] Emergency Number is 24 hours a day available, even on holidays there is someone you can reach out to. Also we will check other labs yearly to screen for other health issues. Please remember we are a team and your opinion is very important in all of your healthcare decisions If this medication ends up not working out, will likely recommend psychiatrist consult. Jun, Non-seasonal allergic rhinitis, unspecified trigger (ICD-10 - J30.89) [facility] Other 11-04-2021 Evaluation note* Encounter Date Diagnosis Assessment Notes Treatment Notes Treatment Clinical Notes Feb, Contact with and (suspected) exposure to other viral communicable diseases (ICD-10 - Z20.828) Even though COVID RAPID test is NEGATIVE, I am highly suspicious at this time you may be positive due to the symptoms. Recommend patient follow Quarantine guidelines until you follow up with PCP.. Recommend OTC medication such as Mucinex, Sea salt nasal spray, Cepecol, Tylenol, Zyrtec, as they can help with symptoms Feb, Other Additional time spent conducting pre-visit phone call, screening for symptoms, instructions on social distancing, application and removal of PPE, and cleaning of examination room, equipment and supplies was preformed. Patient education given for testing methodology and results. Patient care instructions given in writting by [facility] Care At Home document. [employer] Other 10-25-2021 Evaluation note* Encounter Date Diagnosis Assessment Notes Treatment Notes Treatment Clinical Notes Jan, BRITT (generalized anxiety disorder) (ICD-10 - F41.1) Today during the appointment we discussed depression and emotions. We talked about treatment options that include both counseling and medication interventions. When we first start treatment, it is common to have to be seen more frequently as we figure out the best treatment regimen that fits you as an individual. We will be able to space out appointments more once we find what works for you. If at any time you feel like your symptoms have increased in severity or you want to hurt yourself, please never hesitate to contact us and we will get you in to be seen. Also always know the [facility] Emergency Number is 24 hours a day available, even on holidays there is someone you can reach out to. Also we will check other labs yearly to screen for other health issues. Please remember we are a team and your opinion is very important in all of your healthcare decisions Jan, Other insomnia (ICD-10 - G47.09) [facility] [employer] Other Chief complaint+Reason for visit Narrative* Chief Complaint Chest congestion Reason for Visit Contact with and (leahy spected) exposure to covid-19 [facility] Work Phone: Evaluation noteNo InformationNort [employer] Other Evaluation noteNo assessment information available [facility] Work Phone: Evaluation note* Diagnosis Onset Date Resolution Status Contact with and (suspected) exposure to covid-19 noneactive [facility] Work Phone: History general Narrative - Reported* Type Description Date Medical History anxiety Surgical History cholecystectomy Hospitalization History see above [employer] Other Summary Purpose Family History Relationship Condition Age at Onset Recorded Date/T sheree father Diabetes mellitus Unknown Unknown family member Unknown grandparent Malignant neoplasm Unknown Diabetes mellitus Unknown grandparent Diabetes mellitus Unknown Malignant neoplasm Unknown mother Diabetes mellitus Unknown Advance Directives Advance Directive Response Recorded Date/ Time Advance Directives No June 25 1:36am Advance Directive Response Recorded Date/ Time Advance Directives No June 25 2:36am Chief Complaint and Reason for Visit Chief Complaint L Middle finger inj ICO [facility] Additional Source Comments INFORMATION SOURCE (unrecogn ized section and content) DATE CREATED AUTHOR 03/31/2019 [facility] DATE CREATED AUTHOR AUTHOR'S ORGANIZ ATION 05/27/2022 [facility] DATE CREATED AUTHOR AUTHOR'S ORGANIZ ATION 05/12/2023 [facility] DATE CREATED AUTHOR AUTHOR'S ORGANIZ ATION 07/07/2023 [facility] EPIC REASON FOR VISIT (unrecogniz ed section and content) MEDICATION REVIEW, Freddie Anx iety#21 WHITE JEMMA, CONGESTION, FATIGUE, H/A, CHILLS, COVID Provider VisitNo InformationFOLLOW UP BRITT, Freddie AnxietyNo InformationVAGINAL DISCHARGE, DISCOMFORTWHITE JEMMA LEFT EARACHE, SORE THROATNo InformationVAGINAL DISCHARGE, DISCOMFORTMEDICATION QUESTIONS, POSSIBLE PREGNANCYNo InformationRASH, POSS ALLERGIC REACTION TO WHO IS ON PENICILLIN THAT SHE HAS AN ALLERGY TOFOLLOW UP MEDICATIONF/U QUESTIONS ABOUT PERIODNo InformationNo InformationWELLNESS VISIT AND MED CHECK, Freddie Wellness under 50No Informationface hurts, congestion, sore throat, coughPOSSIBLE EAR ACHE RIGHT SIDE Care Teams (unrecognized sec tion and content) Team Status: Active Member Role Status Dates ESTEBAN Wray Primary Care Provider Active Team Status: Inactive Member Role Status Dates CAMILO Wray-C Primary Care Provider Active Mikey Mayfield DO Emergency Provider Active Team Status: Active Member Role Status Dates Hattie Matamoros [employer]- Primary Care Provider Activ e Team Status: Inactive Member Role Status Dates Elodia Bear APRN Attending Provider Active Start: December 02, 2023 End: December 02, 2023 [facility] e Start: December 02, 2023 End: December 02, 2023 Goals (unrecognized section and content) Goals may be documented in a n alternate section FOR RECORDS PERTAINING TO PATIENTS WHO ARE OR HAVE BEEN ENROLLED IN A CHEMICAL DEPENDENCY/SUBSTANCEABUSE PROGRAM, SOME INFORMATION MAY BE OMITTED. This clinical summary was aggregated from multiple sources. Caution should be exercised in using it in the provision of clinical care. This summary normalizes information from multiple sources, and as a consequence, information in this document may materially change the coding, format and clinical context of patient data. In addition, data may be omitted in some cases. CLINICAL DECISIONS SHOULD BE BASED ON THE PRIMARY CLINICAL RECORDS. [facility] [employer] provides no warranty or guarantee of the accuracy or completeness of information in this document.
[2024-04-16 23:55] VITALS: BP 174/145; PULSE 107; TEMP 36.8; O2SAT 98; BMI 35.5
--- NOTE | 2024-04-17 00:09 | ED_ITS ---
HPI - Abdominal Pain General Chief Complaint: Abdominal Pain Stated Complaint: BACK PAIN Time Seen by Provider: 04/16/24 23:46 Source: patient Mode of arrival: ambulance History of Present Illness HPI narrative: 34-year-old female presents for pain on the left side of her abdomen which started this afternoon. It waxes and wanes. No vomiting diarrhea or constipation. No injury or fever. No dysuria or hematuria. LMP was April 06. The pain has been continuous though waxes and wanes Related Data Home Medications ?Medication ?Instructions ?Recorded ?Confirmed cyclobenzaprine 10 mg tablet mg 04/16/24 Previous Rx's ?Medication ?Instructions ?Recorded dicyclomine 10 mg capsule 10 mg PO QID PRN abdominal pain 04/17/24 #20 caps Allergies Allergy/AdvReac Type Severity Reaction Status Date / Time Penicillins Allergy Intermediate Verified 11/16/22 07:03 Review of Systems ROS Narrative A ten point review of systems is negative except as noted above. PFSH PFSH Social History Smoking status: Never smoker Little interest or pleasure in doing things: not at all Feeling down, depressed, or hopeless: not at all Exam Narrative Exam Narrative: Nurses note and vital signs reviewed and patient is not hypoxic. General: The patient appears in no apparent distress. Patient appears uncomfortable. Skin: Warm, dry, no pallor noted. There is no rash noted. Head: Normocephalic, atraumatic Eye: Normal conjunctiva, no drainage Ears, Nose, Mouth, and Throat: oral mucosa is moist. Nares patent. Cardiovascular: Regular Rate and Rhythm Respiratory: Patient is in no distress, no accessory muscle use, lungs are clear to auscultation, no wheezing, rales or rhonchi GI: Soft and nondistended. No masses. She has some tenderness on the left side. Musculoskeletal: The patient has no evidence of calf tenderness, no pitting edema, symmetrical pulses noted bilaterally Neurological: A&O, normal speech Psychiatric: Cooperative Constitutional Vital Signs, click to edit/add: Last Vital Signs Temp 98.6 F 04/17/24 01:49 Pulse 103 H 04/17/24 01:49 Resp 19 04/17/24 01:49 BP 140/78 04/17/24 01:49 Pulse Ox 99 04/17/24 01:49 O2 Del Method Room Air 04/16/24 23:55 Course Vital Signs Vital signs: Vital Signs Temperature 98.3 F 04/16/24 23:55 Pulse Rate 107 H 04/16/24 23:55 Respiratory Rate 19 04/16/24 23:55 Blood Pressure 174/145 H 04/16/24 23:55 Pulse Oximetry 98 04/16/24 23:55 Oxygen Delivery Method Room Air 04/16/24 23:55 Temperature 98.6 F 04/17/24 01:49 Pulse Rate 103 H 04/17/24 01:49 Respiratory Rate 19 04/17/24 01:49 Blood Pressure 140/78 04/17/24 01:49 Pulse Oximetry 99 04/17/24 01:49 Oxygen Delivery Method Room Air 04/16/24 23:55 MDM - Abdominal Pain MDM Narrative Medical decision making narrative: Her workup including CT of the abdomen is negative. She was given IM Bentyl and prescribed Bentyl and is discharged home. She will follow-up with her family doctor if symptoms persist. Treatment diagnosis and follow-up were discussed with the patient. Differential Diagnosis Differential diagnosis: Likely abdominal pain, calculus of kidney, constipation, diverticulitis, gastroenteritis and pancreatitis Lab Data Attestation: I reviewed the patient's lab results. Labs: Lab Results 04/17/24 Range/Units 00:37 WBC 12.0 H (4.0-11.0) 10^3/uL RBC 4.50 (4.20-5.40) 10^6/uL Hgb 13.1 (12.0-16.0) g/dL Hct 39.9 (36.0-48.0) % MCV 88.7 (81.0-99.0) fL MCH 29.1 (26.7-34.0) pg MCHC 32.8 (29.9-35.2) g/dL RDW 12.7 (11.0-15.0) % Plt Count 395 (150-450) 10^3/uL MPV 10.3 (9.5-13.5) fL Neut % (Auto) 68.3 (43.0-75.0) % Lymph % (Auto) 21.8 (20.5-60.0) % [place] % (Auto) 8.5 (1.7-12.0) % Eos % (Auto) 0.6 L (0.9-7.0) % Baso % (Auto) 0.3 (0.2-2.0) % Neut # (Auto) 8.2 H (1.4-6.5) 10^3/uL Lymph # (Auto) 2.6 (1.2-3.8) 10^3/uL [place] # (Auto) 1.0 H (0.3-0.8) 10^3/uL Eos # (Auto) 0.1 (0.0-0.7) 10^3/uL Baso # (Auto) 0.0 (0.0-0.1) 10^3/uL Abs Immat Gran (auto) 0.06 H (0.00-0.03) 10^3/uL Imm/Tot Granulo (auto) 0.5 (0.0-0.5) % Sodium 137 (136-145) mmol/L Potassium 4.3 (3.5-5.1) mmol/L Chloride 102 (98-107) mmol/L Carbon Dioxide 30.3 (21.0-32.0) mmol/L Anion Gap 9.0 BUN 13.0 (7.0-18.0) mg/dL Creatinine 1.04 H (0.55-1.02) mg/dL Est GFR ( Amer) >60 (>=60 mL/min/1.73m^2) Est GFR (Non-Af Amer) >60 (>=60 mL/min/1.73m^2) BUN/Creatinine Ratio 12.5 Glucose 109 H (74-106) mg/dL Calcium 9.2 (8.5-10.1) mg/dL Serum HCG, Qual Negative (NEGATIVE) Imaging Data CT scan - abdomen: Radiologist's impression: ITS Impressions Abdomen/Pelvis CT 04/17/24 01:09 IMPRESSION: 1. No acute or significant abdominal or pelvic pathology. 2. Mild hepatic steatosis. 3. Remote cholecystectomy. Electronically authenticated by: JULIANNA RAMEY Date: 04/17/2024 02:25 Discharge Plan Discharge Chief Complaint: Abdominal Pain Clinical Impression: Abdominal pain Patient Disposition: Home, Self-Care Time of Disposition Decision: 02:33 Condition: Good Mode of Transportation: Private Vehicle Prescriptions / Home Meds: New dicyclomine 10 mg capsule 10 mg PO QID PRN (Reason: abdominal pain) Qty: 20 0RF No Action cyclobenzaprine 10 mg tablet Print Language: Greenlandic Instructions: Abdominal Pain (ED) Referrals: BASIL MATAMOROS [Primary Care Provider] - 1 week
[2024-04-17 00:46] LABS: Basophils Percent Auto 0.3 % (0.2-2.0); Eosinophils Absolute Auto 0.1 10^3/uL (0.0-0.7); Eosinophils Percent Auto 0.6 % (0.9-7.0); Hematocrit 39.9 % (36.0-48.0); Hemoglobin 13.1 g/dL (12.0-16.0); Immature Granulocytes Abs Auto 0.06 10^3/uL (0.00-0.03); Immature Granulocytes Pct Auto 0.5 % (0.0-0.5); Lymphocytes Absolute Auto 2.6 10^3/uL (1.2-3.8); Lymphocytes Percent Auto 21.8 % (20.5-60.0); Mean Corpuscular HGB Conc 32.8 g/dL (29.9-35.2); Mean Corpuscular Hemoglobin 29.1 pg (26.7-34.0); Mean Corpuscular Volume 88.7 fL (81.0-99.0); Mean Platelet Volume 10.3 fL (9.5-13.5); Monocytes Percent Auto 8.5 % (1.7-12.0); Neutrophils Absolute Auto 8.2 10^3/uL (1.4-6.5); Neutrophils Percent Auto 68.3 % (43.0-75.0); Platelet Count 395 10^3/uL (150-450); Red Cell Distribution Width 12.7 % (11.0-15.0)
[2024-04-17 00:59] LABS: BUN Creatinine Ratio 12.5; Calcium 9.2 mg/dL (8.5-10.1); Carbon Dioxide 30.3 mmol/L (21.0-32.0); Chloride 102 mmol/L (98-107); Estimated GFR (African America >60 (>=60 mL/min/1.73m^2); Estimated GFR (Non-African Ame >60 (>=60 mL/min/1.73m^2); Glucose 109 mg/dL (74-106); HCG Qualitative NEGATIVE (NEGATIVE); Internal Control Within Normal Limits; Potassium 4.3 mmol/L (3.5-5.1); Sodium 137 mmol/L (136-145)
--- NOTE | 2024-04-17 01:09 | CT_ITS ---
The [address] [address] Patient Name: MOSES EMMANUEL MRN: [id number] date: 1990 Sex: F Assigned Patient Location: ER Current Patient Location: Accession/Order Number: [id number] Exam Date: 04/17/2024 01:42 Report Date: 04/17/2024 02:25 At the request of: AUBREY RODRIGUEZ Procedure: CT abdomen pelvis w con CT OF THE ABDOMEN AND PELVIS WITH CONTRAST: 04/17/2024 1:42 AM EST CLINICAL HISTORY: Left-sided abdominal pain. COMPARISONS: None. TECHNIQUE: Thin section axial CT images were obtained from the lung bases to the pubis symphysis. This CT exam was performed using one or more of the following dose reduction techniques: Automated exposure control, adjustment of the mA and/or kV according to patient size, or use of iterative reconstruction technique. Thin section coronal and sagittal images were reconstructed from the axial data set. All images were reviewed and interpreted. CONTRAST: Intravenous contrast was administered. Type and amount is documented at the local institution. FINDINGS: LUNG BASES: No consolidation or pleural fluid. LIVER: Mild diffuse hepatic steatosis. Liver otherwise negative. GALLBLADDER: Cholecystectomy. BILIARY TREE: No ductal dilatation. PANCREAS: Normal. SPLEEN: Normal. ADRENALS: Normal. KIDNEYS: Normal, without urolithiasis or hydronephrosis. URINARY BLADDER: Grossly unremarkable. PELVIC STRUCTURES: Reproductive structures are normal for patient age. No pelvic mass. BOWEL: No evidence of obstruction, gross mass, or inflammatory change. There is no significant diverticulosis. There is no evidence of diverticulitis. APPENDIX: No active disease with normal appendix. LYMPH NODES: No pathologically enlarged lymph nodes identified. PERITONEUM: No intraperitoneal free air. No free intraperitoneal fluid. MESENTERY: Unremarkable. RETROPERITONEUM: The retroperitoneum is unremarkable. AORTA: Normal in caliber. BODY WALL: No body wall mass. OSSEOUS STRUCTURES: No fracture or osseous lesion. CT/CT abdomen pelvis w con IMPRESSION: 1. No acute or significant abdominal or pelvic pathology. 2. Mild hepatic steatosis. 3. Remote cholecystectomy. Electronically authenticated by: JULIANNA RAMEY Date: 04/17/2024 02:25
[2024-04-17 01:49] VITALS: BP 140/78; PULSE 103; TEMP 37; O2SAT 99
[2024-04-17] MEDS: DICYCLOMINE HCL 20 MG/2 ML VIAL IM (02:56)
== END 2024-04-17 03:24 | disposition home or self-care (01) ==
PROVIDERS: Emergency Provider Emergency Medicine; PCP Nurse Practitioner Family
DX: R10.9 Unspecified abdominal pain (principal); Z90.49 Acquired absence of other specified parts of digestive tract; K76.0 Fatty (change of) liver, not elsewhere classified
CPT/HCPCS: 36415; 74177; 80048; 81001; 84703; 85025; 96372; 99284; J0500; Q9967